=== PATIENT | male | born 1940 | race Caucasian/White ===

== ENCOUNTER 2019-01-03 11:28 | Emergency (ER) | payer OTHER ==
[~2019-01-03] VITALS: Ht 162.6 cm; Wt 68.9 kg
[2019-01-03 12:18] VITALS: Ht 162.6 cm; Wt 68.9 kg
[2019-01-03 14:32] VITALS: BP 139/69
== END 2019-01-03 14:32 | disposition home or self-care (01) ==
LOC: ED 11:28
DX: S22.41XA Multiple fractures of ribs, right side, initial encounter for closed fracture (principal); W01.0XXA Fall on same level from slipping, tripping and stumbling without subsequent striking against object, initial encounter; Y93.89 Activity, other specified; Y92.89 Other specified places as the place of occurrence of the external cause; Y99.8 Other external cause status
CPT/HCPCS: 94150